=== PATIENT | male | born 1975 | race Caucasian/White ===

== ENCOUNTER 2016-09-18 13:32 | Emergency (ER) | payer MEDICAID ==
[~2016-09-18] VITALS: Ht 165.1 cm; Wt 72.6 kg
[2016-09-18 14:00] VITALS: BP 123/73
[2016-09-18] MEDS ORDERED: ACET-9800 PO (14:11)
--- NOTE | 2016-09-18 14:25 | NUR ---
Patient to OF.
--- NOTE | 2016-09-18 14:28 | NUR ---
Dr. Griffith evaluating patient.
--- NOTE | 2016-09-18 14:43 | NUR ---
Patient ambulatd to bed 06.
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
[2016-09-18 15:32] VITALS: BP 119/71
--- NOTE | 2016-09-18 15:32 | NUR ---
Patient discharged with v/s stable. Written and verbal after care instructions given and explained. Patient alert, oriented and verbalized understanding of instructions. Ambulatory with steady gait. All questions addressed prior to discharge. ID band removed. Patient advised to follow up with PMD. Rx of MOTRIN& ROBAXIN given. Patient educated on indication of medication including possible reaction and side effects. Opportunity to ask questions provided and answered.
== END 2016-09-18 15:32 | disposition home or self-care (01) ==
LOC: MED 13:32
DX: S39.012A Strain of muscle, fascia and tendon of lower back, initial encounter (principal); S80.02XA Contusion of left knee, initial encounter; V43.52XA Car driver injured in collision with other type car in traffic accident, initial encounter; Y93.I9 Activity, other involving external motion; Y92.411 Interstate highway as the place of occurrence of the external cause; Y99.8 Other external cause status
CPT/HCPCS: 72100; 73562; 99284

== ENCOUNTER 2018-05-02 08:25 | Emergency (ER) | payer MEDICAID ==
[~2018-05-02] VITALS: Ht 162.6 cm; Wt 70.8 kg
[~2018-05-02 08:25] MED LIST: ACET-9800 PO
[2018-05-02 08:32] VITALS: BP 131/90
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
--- NOTE | 2018-05-02 09:10 | NUR ---
ER MD ADDISON BY BEDSIDE EXAMINING PT
[2018-05-02] MEDS ORDERED: predniSONE 20 MG TAB PO ONE (09:15)
[2018-05-02] MEDS ORDERED: KETOROLAC 30 MG/ML VIAL IM ONE (09:15)
--- NOTE | 2018-05-02 09:29 | NUR ---
XRAY BY BEDSIDE
[2018-05-02 10:15] VITALS: BP 129/84
--- NOTE | 2018-05-02 10:15 | NUR ---
Patient discharged with v/s stable. Written and verbal after care instructions given and explained. Patient alert, oriented and verbalized understanding of instructions. Ambulatory with steady gait. All questions addressed prior to discharge. ID band removed. Patient advised to follow up with PMD. Rx of Prednisone 50mg and Naprosyn 500mg given. Patient educated on indication of medication including possible reaction and side effects. Opportunity to ask questions provided and answered.
== END 2018-05-02 10:15 | disposition home or self-care (01) ==
LOC: MED 08:25
DX: S50.02XA Contusion of left elbow, initial encounter (principal); Z79.1 Long term (current) use of non-steroidal anti-inflammatories (NSAID); W19.XXXA Unspecified fall, initial encounter; Y93.89 Activity, other specified; Y92.524 Gas station as the place of occurrence of the external cause; Y99.8 Other external cause status
CPT/HCPCS: 73080; 96372; 99283; J1885; J7512

== ENCOUNTER 2019-05-02 17:23 | Emergency (ER) | payer MEDICAID ==
[~2019-05-02] VITALS: Ht 162.6 cm; Wt 63.5 kg
[2019-05-02 17:40] VITALS: BP 136/95
--- NOTE | 2019-05-02 17:43 | NUR ---
TO [facility] A/W BED AMBULATORY VISUAL ACUITY BOTH EYE 20/20, RT EYE 20/20 LEFT EYE 20/0
--- NOTE | 2019-05-02 18:12 | NUR ---
Patient ambulated to bed 4. RN evaluating patient at bedside.
[2019-05-02] MEDS ORDERED: ACETAMINOPHEN 325 MG TAB PO ONE (18:40)
--- NOTE | 2019-05-02 19:05 | NUR ---
PT TO CT
--- NOTE | 2019-05-02 19:30 | NUR ---
Pt report given to PAM HENRY. Transfer of care at this time.
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
[2019-05-02 20:16] VITALS: BP 138/82
--- NOTE | 2019-05-02 20:16 | NUR ---
Patient discharged with v/s stable. Pt states 2/10 tollerable pain. Written and verbal after care instructions given and explained. Patient alert, oriented and verbalized understanding of instructions. Ambulatory with steady gait. All questions addressed prior to discharge. ID band removed. Patient advised to follow up with PMD and when to return to ER. Rx of Ibuprofen given. Patient educated on indication of medication including possible reaction and side effects. Opportunity to ask questions provided and answered.
== END 2019-05-02 20:16 | disposition home or self-care (01) ==
LOC: MED 17:23
DX: S05.12XA Contusion of eyeball and orbital tissues, left eye, initial encounter (principal); H11.32 Conjunctival hemorrhage, left eye; Z79.899 Other long term (current) drug therapy; Y04.8XXA Assault by other bodily force, initial encounter; Y93.89 Activity, other specified; Y92.89 Other specified places as the place of occurrence of the external cause; Y99.8 Other external cause status
CPT/HCPCS: 70450; 70486; 99284

== ENCOUNTER 2019-12-10 12:41 | Emergency (ER) | payer MEDICAID ==
[~2019-12-10] VITALS: Ht 157.5 cm; Wt 72.6 kg
[2019-12-10 12:42] VITALS: BP 140/84
[2019-12-10] MEDS ORDERED: KETOROLAC 30 MG/ML VIAL IVP ONE (13:10)
[2019-12-10] MEDS ORDERED: ALBUTEROL HFA MDI 90 MCG/ACTUATION 8 GM INH ONE (13:10)
[2019-12-10] MEDS ORDERED: NACL 0.9% 1,000 ML IV ONE (13:20)
--- NOTE | 2019-12-10 13:30 | NUR ---
ASSESSMENT PERFORMED AT 1330. PATIENT COMPLAINS OF BODY ACHES AND SOME DIFFICULTY BREATHING X 2 DAYS. PT LUNGS WITH SOME WHEEZING BILATERAL. PT DENIES COUGH, NO FEVER AT TRIAGE. PT AOX4, BREATHING EVEN AND UNLABORED, SKIN WARM AND DRY. BED IN LOWEST POSITION, LOCKED, BED RAIL UPX1. PMH - GOUT
[2019-12-10 13:50] LABS: BASOPHILS % (AUTO) 0.3 % (0.0-2.0); EOSINOPHILS # (AUTO) 0.1 K/uL (0-0.4); EOSINOPHILS % (AUTO) 1.3 % (0.0-4.0); HEMATOCRIT 36.4 % (36-52); HEMOGLOBIN 11.9 g/dL (12.0-18.0); LYMPHOCYTES # (AUTO) 1.2 K/uL (2.0-11.5); LYMPHOCYTES % (AUTO) 10.1 % (20.5-51.1); MEAN CORPUSCULAR HEMOGLOBIN 28 pg (27-31); MEAN CORPUSCULAR HGB CONC 33 g/dL (33-37); MEAN CORPUSCULAR VOLUME 87.3 fL (80-94); MONOCYTES # (AUTO) 0.9 K/uL (0.8-1.0); MONOCYTES % (AUTO) 7.6 % (1.7-9.3); NEUTROPHILS # (AUTO) 9.5 K/uL (1.8-7.7); NEUTROPHILS % (AUTO) 80.7 % (42.2-75.2); PLATELET COUNT (AUTO) 280 K/uL (140-450); RED BLOOD CELL COUNT(AUTO) 4.17 MIL/uL (4.20-6.10); RED CELL DISTRIBUTION WIDTH 14.7 % (11.6-13.7); WHITE BLOOD COUNT (AUTO) 11.7 K/uL (4.8-10.8)
[2019-12-10 14:18] LABS: ANION GAP 14.5 (8-16); CARBON DIOXIDE 24.9 mmol/L (21-32); CREATININE 0.7 mg/dL (0.6-1.3); POTASSIUM 4.4 mmol/L (3.5-5.1); TOTAL BILIRUBIN 0.7 mg/dL (0.0-1.0)
[2019-12-10] MEDS ORDERED: AMOXIL/CLAVULANATE 875/125 MG 1 TAB PO ONE (14:40)
[2019-12-10] MEDS ORDERED: AZITHROMYCIN 250 MG TAB PO ONE (14:40)
--- NOTE | 2019-12-10 15:30 | NUR ---
Patient discharged with v/s stable. Written and verbal after care instructions about chest pain nonspecific given and explained with translation. Patient alert, oriented and verbalized understanding of instructions. Ambulatory with steady gait. All questions addressed prior to discharge. ID band removed. Patient advised to follow up with PMD. Rx of albuterol, augmentin, and azithromycin given. Patient educated on indication of medication including possible reaction and side effects. Opportunity to ask questions provided and answered.
== END 2019-12-10 15:30 | disposition home or self-care (01) ==
LOC: MED 12:41
DX: J18.9 Pneumonia, unspecified organism (principal); M79.10 Myalgia, unspecified site; Z79.899 Other long term (current) drug therapy
CPT/HCPCS: 36415; 71045; 80053; 84484; 85025; 87426; 93005; 94664; 96361; 96374; 99285; J1885; J3535; J7030; Q0092